=== PATIENT | female | born 1965 | race Caucasian/White ===

== ENCOUNTER → 2024-10-19 07:47 | Outpatient (REF) | payer BC, SELFPAY | LOC: WDC 07:47 | PROVIDERS: ATTENDING PHYSICIAN Advanced Practice Midwife | DX: Z12.31 Encounter for screening mammogram for malignant neoplasm of breast (principal) | CPT/HCPCS: 77063; 77067 ==

== ENCOUNTER → 2025-05-02 16:01 | Outpatient (REF) | payer BC, SELFPAY | LOC: MRI 3T 16:01 | PROVIDERS: ATTENDING PHYSICIAN Surgery; FAMILY PHYSICIAN Nurse Practitioner Family | DX: R92.30 Dense breasts, unspecified (principal); Z15.89 Genetic susceptibility to other disease | CPT/HCPCS: 77049; A9585 ==

== ENCOUNTER 2025-05-05 06:09 | Day surgery (SDC) | payer BC, SELFPAY ==
[2025-05-05 08:32] VITALS: BMI 26.1
[2025-05-05 08:36] VITALS: BP 126/83; BMI 26.1
[2025-05-05 11:21] VITALS: BP 119/87
[2025-05-05 11:31] VITALS: BP 140/93
== END 2025-05-05 11:55 | disposition home or self-care (01) ==
LOC: GI 06:09
PROVIDERS: ATTENDING PHYSICIAN Internal Medicine Gastroenterology
DX: Z12.11 Encounter for screening for malignant neoplasm of colon (principal); K64.0 First degree hemorrhoids; D12.2 Benign neoplasm of ascending colon; Z80.0 Family history of malignant neoplasm of digestive organs
CPT/HCPCS: 45385; 88305